=== PATIENT | female | born 1985 | race Caucasian/White ===

== ENCOUNTER 2017-01-02 04:03 | Inpatient (IN) | payer SELFPAY ==
[~2017-01-02] VITALS: Ht 175.3 cm; Wt 89.7 kg
[2017-01-02] VITALS (10 sets, daily range): BP systolic 105–131; BP diastolic 67–78; PULSE 64–97; TEMP 36.4–37.1; O2SAT 92–98; Ht 175.3 cm; Wt 89.7 kg
[~2017-01-02 04:03] MED LIST: IBUP-1050 PO; PRENTAB26 PO; SERT-234 PO
[2017-01-02] MEDS ORDERED: MoRPHine SULFATE 10 MG/ML CARP/VIAL IV STA (04:24)
[2017-01-02] MEDS ORDERED: SODIUM CHLORIDE 0.9% 1000ML 1,000 ML IV STA (04:24)
[2017-01-02] MEDS ORDERED: ONDANSETRON INJ 2 MG/ML 2 ML VIAL IV STA (04:24)
--- NOTE | 2017-01-02 04:32 | EMERGENCY ROOM VISIT NOTE ---
History First contact with patient: 04:14 Chief Complaint: ABDOMINAL PAIN Stated Complaint: SEVERE RT UPPER QUAD PAIN Nursing Triage Summary: pt states she was gassy all day yesterday, then tonight at midnight she woke with severe right upper quad abd pain. pt hyperventilating and instructed to slow breathing down History of Present Illness The patient is a 31 year old female who presents to the Emergency Room with complaints of severe right upper quadrant abdominal pain. The patient reports that throughout the day yesterday, she had gas pains. The patient reports she is lactose intolerant and had ice cream after dinner and assumed this was the cause of her pain. She reports she had profuse with hot sauce and spaghetti for lunch and dinner. She reports that she woke up approximately 4 hours ago with severe pain in the right upper quadrant as well as belching and nausea. She states that she made herself throw up but this did not help the pain. The pain has been gradually worsening and she rates the discomfort a 10/10. She reports a history of prior C-sections, but denies any other prior surgeries. She denies any changes in bowel movements, fevers/chills, urinary symptoms, vaginal discharge, chest pain or shortness of breath. Review of Systems A complete 10 point review of systems was reviewed with the patient with pertinent positives and negatives as per history of present illness. All else were negative. Past Medical/Surgical History Surgical Problems: (1) H/O section Social History Smoking Status: Current Every Day Smoker Marital Status: Housing Status: lives with family Current/Historical Medications No Active Prescriptions or Reported Meds Allergies Coded Allergies: Escitalopram (Verified Allergy, Severe, LETHARGY, 01/02/17) Methylergonovine (Verified Allergy, Severe, HAND CRAMPS,NUMBNESS, 01/02/17 ) Physical Exam Vital Signs Date Time Temp Pulse Resp B/P (MAP) Pulse Ox O2 Delivery O2 Flow Rate FiO2 01/02/17 05:50 61 18 115/65 98 Room Air 01/02/17 04:23 36.7 83 36 113/74 100 Room Air Physical Exam VITALS: Vitals are noted on the nurse's note and reviewed by myself. Vital signs stable. GENERAL: This is a 31-year-old female, hyperventilating, appears to be in pain, well-developed well-nourished. HEART: Regular rate and rhythm without murmurs gallops or rubs. LUNGS: Clear to auscultation bilaterally without wheezes, rales or rhonchi. ABDOMEN: Positive bowel sounds x 4. Soft, nondistended. Tenderness to palpation in the right upper quadrant. No guarding or rebound tenderness. NEURO: Patient was alert and oriented to person place and time. Medical Decision & Procedures ER Provider Diagnostic Interpretation: KUB: No bowel obstruction. BILIARY ULTRASOUND FINDINGS: The pancreas appears sonographically normal. No focal hepatic masses are visualized. There is no ductal dilatation. The gallbladder is distended. Multiple calculi are visualized. A 7 mm calculus is also visualized within the gallbladder neck. There is no right-sided hydronephrosis. There is trace pericholecystic fluid. The gallbladder wall is borderline thickened measuring 3 mm. The common bile duct measures 6 mm. IMPRESSION: 1. Cholelithiasis, gallbladder distention, borderline gallbladder wall thickening, and trace pericholecystic fluid. The findings may indicate acute cholecystitis. Clinical correlation is advocated. Correlation with a nuclear medicine hepatobiliary study could be obtained to assess cystic duct patency. Laboratory Results 01/02/17 04:20 Red Blood Count 5.33, Mean Corpuscular Volume 88.0, Mean Corpuscular Hemoglobin 31.1, Mean Corpuscular Hemoglobin Concent 35.4, Mean Platelet Volume 11.0, Neutrophils (%) (Auto) 62.6, Lymphocytes (%) (Auto) 28.0, Monocytes (%) (Auto) 6.8, Eosinophils (%) (Auto) 2.0, Basophils (%) (Auto) 0.2, Neutrophils # (Auto) 5.02, Lymphocytes # (Auto) 2.25, Monocytes # (Auto) 0.55, Eosinophils # (Auto) 0.16, Basophils # (Auto) 0.02 01/02/17 04:20 Test 01/02/17 00:00 01/02/17 04:20 Urine Color YELLOW Urine Appearance CLEAR (CLEAR) Urine pH 5.5 (4.5-7.5) Urine Specific [place] 1.009 (1.000-1.030) Urine Protein NEG (NEG) Urine Glucose (UA) NEG (NEG) Urine Ketones TRACE (NEG) Urine Occult Blood NEG (NEG) Urine Nitrite NEG (NEG) Urine Bilirubin NEG (NEG) Urine Urobilinogen NEG (NEG) Urine Leukocyte Esterase NEG (NEG) Urine Test NEG (NEG) White Blood Count 8.03 K/uL (4.8-10.8) Red Blood Count 5.33 M/uL (4.2-5.4) Hemoglobin 16.6 g/dL (12.0-16.0) Hematocrit 46.9 % (37-47) Mean Corpuscular Volume 88.0 fL (80-100) Mean Corpuscular Hemoglobin 31.1 pg (25-34) Mean Corpuscular Hemoglobin Concent 35.4 g/dl (32-36) Platelet Count 244 K/uL (130-400) Mean Platelet Volume 11.0 fL (7.4-10.4) Neutrophils (%) (Auto) 62.6 % Lymphocytes (%) (Auto) 28.0 % Monocytes (%) (Auto) 6.8 % Eosinophils (%) (Auto) 2.0 % Basophils (%) (Auto) 0.2 % Neutrophils # (Auto) 5.02 K/uL (1.4-6.5) Lymphocytes # (Auto) 2.25 K/uL (1.2-3.4) Monocytes # (Auto) 0.55 K/uL (0.11-0.59) Eosinophils # (Auto) 0.16 K/uL (0-0.5) Basophils # (Auto) 0.02 K/uL (0-0.2) RDW Standard Deviation 39.9 fL (36.4-46.3) RDW Coefficient of Variation 12.6 % (11.5-14.5) Immature Granulocyte % (Auto) 0.4 % Immature Granulocyte # (Auto) 0.03 K/uL (0.00-0.02) Anion Gap 16.0 mmol/L (3-11) Estimated GFR () 84.9 Estimated GFR (Non- 73.2 BUN/Creatinine Ratio 8.6 (10-20) Calcium Level 9.6 mg/dl (8.5-10.1) Total Bilirubin 0.8 mg/dl (0.2-1) Aspartate Amino Transf (AST/SGOT) 12 U/L (15-37) Alanine Aminotransferase (ALT/SGPT) 17 U/L (12-78) Alkaline Phosphatase 104 U/L (45-117) Total Protein 7.6 gm/dl (6.4-8.2) Albumin 4.3 gm/dl (3.4-5.0) Globulin 3.3 gm/dl (2.5-4.0) Albumin/Globulin Ratio 1.3 (0.9-2) Lipase 121 U/L (73-393) Medications Administered Medications (Trade) Dose Ordered Sig/Yann Route Start Time Stop Time Status Last Admin Dose Admin Sodium Chloride 1,000 ml @ 999 mls/hr Q1H1M STAT IV 01/02/17 04:24 01/02/17 05:24 DC 01/02/17 04:36 999 MLS/HR Morphine Sulfate (MoRPHine SULFATE INJ) 8 mg NOW STAT IV 01/02/17 04:24 01/02/17 04:26 DC 01/02/17 04:36 8 MG Ondansetron HCl (Zofran Inj) 4 mg NOW STAT IV 01/02/17 04:24 01/02/17 04:26 DC 01/02/17 04:36 4 MG Hydromorphone HCl (Dilaudid Inj) 1 mg NOW STAT IV 01/02/17 05:40 01/02/17 05:41 DC 01/02/17 05:48 1 MG ED Course The patient was evaluated as above. Labs were drawn and IV access was obtained. Patient was medicated with 8 mg morphine, 4 mg Zofran and 1 L normal saline solution. Right upper quadrant ultrasound was performed and read by radiology as above. Patient was reevaluated and was having more pain. 1 mg Dilaudid was ordered. Findings were discussed with the patient at this time. Case was discussed with Dr. Araujo of general surgery. He will evaluate the patient for further treatment. Medical Decision Differential diagnosis includes cholecystitis, choledocholithiasis, ascending cholangitis, pancreatitis, bowel obstruction, among others. The patient is a 31-year-old female who presents today complaining of with upper quadrant abdominal pain and vomiting. Labs revealed no leukocytosis, anemia or concerning electrolyte abnormalities. LFTs are within normal limits. Right upper quadrant ultrasound was performed and does show findings concerning for acute cholecystitis. General surgery was consulted and will evaluate the patient for further treatment. The patient's case was reviewed with Dr. Cannon, ED attending physician, who agreed with my assessment and treatment plan. Blood pressure screening: Patient was found to have normal blood pressure on screening and does not require follow-up. Medication reconciliation: I attest that I have personally reviewed the patient 's current medication list. Impression Primary Impression: Acute cholecystitis Departure Information Prescriptions No Active Prescriptions or Reported Meds Referrals No Doctor, Assigned (PCP) Patient Instructions My [facility]
[2017-01-02 04:37] LABS: BASO % 0.2 %; BASO ABS # 0.02 K/uL (0-0.2); COMPLETE YES; HEMATOCRIT 46.9 % (37-47); IG% 0.4 %; LYMPH ABS # 2.25 K/uL (1.2-3.4); MEAN CORPUSCULAR HEMOGLOBIN 31.1 pg (25-34); MEAN CORPUSCULAR HGB CONC 35.4 g/dl (32-36); MONO % 6.8 %; NEUT % 62.6 %; PLATELET COUNT 244 K/uL (130-400); RED BLOOD COUNT 5.33 M/uL (4.2-5.4); WHITE BLOOD COUNT 8.03 K/uL (4.8-10.8)
[2017-01-02 04:58] LABS: ALT/SGPT 17 U/L (12-78); AST/SGOT 12 U/L (15-37); BLOOD UREA NITROGEN 9 mg/dl (7-18); BUN/CREATININE RATIO 8.6 (10-20); CALCIUM 9.6 mg/dl (8.5-10.1); CARBON DIOXIDE 18 mmol/L (21-32); CHLORIDE 107 mmol/L (98-107); CREATININE 1.02 mg/dl (0.60-1.20); GLUCOSE 114 mg/dl (70-99); POTASSIUM 3.6 mmol/L (3.5-5.1); SODIUM 141 mmol/L (136-145)
[2017-01-02 05:01] LABS: ALB/GLOB RATIO 1.3 (0.9-2); ALKALINE PHOSPHATASE 104 U/L (45-117)
[2017-01-02 05:18] LABS: URINE APPEARANCE CLEAR (CLEAR); URINE BILIRUBIN NEG (NEG); URINE COLOR YELLOW; URINE NITRITE NEG (NEG); URINE PH 5.5 (4.5-7.5); URINE SPECIFIC GRAVITY 1.009 (1.000-1.030); UROBILINOGEN NEG (NEG); ZZUR CULT IF INDIC CLEAN CATCH NO
[2017-01-02 05:19] LABS: MANUAL MICROSCOPIC REQUIRED? NO; REVIEW REQ? NO
[2017-01-02] MEDS ORDERED: HYDROmorphone INJ 1 MG/ML SYR IV STA (05:40)
--- NOTE | 2017-01-02 06:42 | DIAGNOSTIC IMAGING REPORT ---
BILIARY ULTRASOUND CLINICAL HISTORY: Right upper quadrant abdominal pain and vomiting COMPARISON STUDY: No previous studies for comparison. FINDINGS: The pancreas appears sonographically normal. No focal hepatic masses are visualized. There is no ductal dilatation. The gallbladder is distended. Multiple calculi are visualized. A 7 mm calculus is also visualized within the gallbladder neck. There is no right-sided hydronephrosis. There is trace pericholecystic fluid. The gallbladder wall is borderline thickened measuring 3 mm. The common bile duct measures 6 mm. IMPRESSION: 1. Cholelithiasis, gallbladder distention, borderline gallbladder wall thickening, and trace pericholecystic fluid. The findings may indicate acute cholecystitis. Clinical correlation is advocated. Correlation with a nuclear medicine hepatobiliary study could be obtained to assess cystic duct patency. Electronically signed by: Shay Duarte M.D. 01/02/2017 6:41 AM Dictated Date/Time: 01/02/2017 6:39 AM
--- NOTE | 2017-01-02 06:58 | History and Physical ---
History & Physical Date Jan 02, 2017. Chief Complaint abdominal pain History of Present Illness The patient is a 31 year old female with complaints of abd pain w/ radiation to the back +N/V- persistent over 24 hrs ER w/u u/s shows- dilated gb w/ stones, thickened- c/w acute cholecystitis Past Medical/Surgical History Surgical Problems: (1) H/O section Additional History Hepatic Disease: No Endocrine Disorder: No Kidney Disease: No Hypertension: No Heart Disease: No Allergies Coded Allergies: Escitalopram (Verified Allergy, Severe, LETHARGY, 01/02/17) Methylergonovine (Verified Allergy, Severe, HAND CRAMPS,NUMBNESS, 01/02/17 ) Home Medications No Active Prescriptions or Reported Meds Physical Examination Skin: warm/dry Eyes: sclerae normal Neck: supple Respiratory/Chest: no respiratory distress Cardiovascular: regular rate, rhythm Abdomen / GI: + pertinent finding (RUQ pain) Neurologic/Psych: alert Diagnosis acute cholecystitis Plan of Treatment for laparoscopic cholecystectomy, possible open operation possible cholangiogram. admit
[2017-01-02] MEDS ORDERED: PROMETHAZINE HCL INJ 25 MG in SODIUM CHLORIDE 0.9% 50ML 50 ML IV PRN (07:00)
--- NOTE | 2017-01-02 07:10 | DIAGNOSTIC IMAGING REPORT ---
KUB CLINICAL HISTORY: Right upper quadrant abdominal pain and vomiting COMPARISON STUDY: No previous studies for comparison. FINDINGS: There are no transition zones indicate bowel obstruction. There is mild fecal retention. There are no calcifications suspicious for urinary tract calculi. IMPRESSION: 1. No evidence of bowel obstruction 2. Mild fecal retention Electronically signed by: Shay Duarte M.D. 01/02/2017 7:09 AM Dictated Date/Time: 01/02/2017 7:09 AM
[2017-01-02] MEDS: HYDROmorphone INJ 1 MG/ML SYR IV PRN ×2 (08:24→10:36)
--- NOTE | 2017-01-02 08:49 | History & Physical Bridge Note ---
H&P Re-Evaluation Bridge Note: I have examined the patient, reviewed the History & Physical and in the interval since the performance of the History & Physical I have noted the following changes of clinical significance: No changes noted pt examined will proceed with lap shirley possible open poss cholangiogram for today r and c explained to pt
[2017-01-02] MEDS: LACTATED RINGER'S 1000ML 1,000 ML IV SCH ×2 (09:58→17:10)
[2017-01-02] MEDS: NICOTINE 14 MG/24 HR TDSY TD SCH (10:04)
[2017-01-02] MEDS ORDERED: NURSING VERBAL MED ORDER ONE (10:30)
[2017-01-02] MEDS: ONDANSETRON INJ 2 MG/ML 2 ML VIAL IV PRN ×2 (10:40→15:19)
[2017-01-02] MEDS ORDERED: HYDROmorphone INJ 1 MG/ML SYR IV PRN (11:15)
[2017-01-02] MEDS ORDERED: DEXAMETHASONE SOD INJ 4 MG/ML VIAL ONE (11:34)
[2017-01-02] MEDS ORDERED: FENTANYL CITRATE INJ 50 MCG/1 ML 2 ML VIAL ONE ×4 (11:34→13:32)
[2017-01-02] MEDS ORDERED: ONDANSETRON INJ 2 MG/ML 2 ML VIAL ONE (11:34)
[2017-01-02] MEDS ORDERED: MIDAZOLAM HCL 1 MG/ML 2ML VIAL ONE (11:34)
[2017-01-02] MEDS ORDERED: PROPOFOL IV EMULSION 10 MG/ML 20 ML VIAL IV ONE (11:34)
[2017-01-02] MEDS ORDERED: LIDOCAINE HCL 2% 2 ML VIAL (20MG/ML) ONE (11:34)
[2017-01-02] MEDS ORDERED: PHENYLEPHRINE 100MCG/ML 5ML SYR IV PRN (12:00)
[2017-01-02] MEDS ORDERED: LIDOCAINE/EPINEPHRINE 1% 20 ML VIAL ONE (12:00)
[2017-01-02] MEDS ORDERED: EpHEDrine SULFATE INJ 50 MG/ML AMP IV PRN (12:00)
[2017-01-02] MEDS ORDERED: CONRAY 60% 50 ML VIAL ONE (12:00)
[2017-01-02] MEDS ORDERED: HYDROmorphone INJ 2 MG/ML SYR/VIAL IV PRN (12:00)
[2017-01-02] MEDS ORDERED: ATROPINE SULFATE 0.1 MG/ML 5ML SYR IV PRN (12:00)
[2017-01-02] MEDS ORDERED: ONDANSETRON INJ 2 MG/ML 2 ML VIAL IV PRN (12:00)
--- NOTE | 2017-01-02 13:16 | DIAGNOSTIC IMAGING REPORT ---
CHOLANGIOGRAM O.R. CLINICAL HISTORY: CHOLANGIOGRAM COMPARISON STUDY: None FLUOROSCOPY TIME: 3 seconds. NUMBER OF FLUOROSCOPIC IMAGES: 1 FINDINGS: The cystic duct was cannulated and contrast was instilled into the common bile duct. There was free flow into duodenum. There were no filling defects to indicate retained calculi. There is minimal irregularity the proximal pancreatic duct. IMPRESSION: 1. No retained calculi identified 2. Minimal irregularity of the pancreatic duct, a finding of questionable clinical significance Electronically signed by: Shay Duarte M.D. 01/02/2017 1:15 PM Dictated Date/Time: 01/02/2017 1:13 PM
--- NOTE | 2017-01-02 13:47 | [facility] Operative Report ---
Operative Report Operative Date Jan 02, 2017. Pre-Operative Diagnosis Acute cholecystitis cholelithiasis Post-Operative Diagnosis Acute cholecystitis cholelithiasis Procedure(s) Performed Laparoscopic Cholecystectomy with Intraoperative cholangiogram Surgeon Dr. Ermias Nance Medication Technician Surgeon(s) None Estimated Blood Loss 15.5 mL Findings acute edematous cholecystitis Specimens Permanent specimens A: Gallbladder and contents Drains # [id number] young per drain Description of Procedure confirmation number for OR dictation [id number] I attest to the content of the Intraoperative Record and any orders documented therein. Any exceptions are noted below.
[2017-01-02] MEDS: HYDROmorphone INJ 0.5 MG/0.5 ML SYR IV PRN ×2 (13:50→23:54)
--- NOTE | 2017-01-02 14:14 | Anesthesiology Progress Note ---
Anesthesia Post Op Note Date & Time Jan 02, 2017 at 14:14 Vital Signs Pain Intensity: 3 Vital Signs Past 12 Hours Date Time Temp Pulse Resp B/P (MAP) Pulse Ox O2 Delivery O2 Flow Rate FiO2 01/02/17 14:05 87 16 140/77 99 Nasal Cannula 4 01/02/17 13:55 110 16 128/79 99 Nasal Cannula 4 01/02/17 13:45 115 16 122/88 99 Nasal Cannula 4 01/02/17 13:37 36.5 106 16 117/80 97 Nasal Cannula 4 01/02/17 08:45 36.7 64 16 122/77 (92) 96 Room Air 01/02/17 08:45 Room Air 01/02/17 08:33 60 16 110/70 99 01/02/17 08:28 60 16 124/67 99 Room Air 01/02/17 07:30 90 18 121/72 99 Room Air 01/02/17 07:20 98 Room Air 01/02/17 05:50 61 18 115/65 98 Room Air 01/02/17 04:23 36.7 83 36 113/74 100 Room Air Notes Mental Status: alert / awake / arousable, participated in evaluation Pt Amnestic to Procedure: Yes Nausea / Vomiting: adequately controlled Pain: adequately controlled Airway Patency, RR, SpO2: stable & adequate BP & HR: stable & adequate Hydration State: stable & adequate Anesthetic Complications: no major complications apparent
[2017-01-02] MEDS: CEFOXITIN IV 1,000 MG in DEXTROSE 5% 50ML 50 ML IV SCH ×2 (15:19→22:03)
--- NOTE | 2017-01-02 15:56 | OPERATIVE REPORT ---
DATE OF OPERATION: 01/02/2017 SURGEON: Dr. Nance. PREOPERATIVE DIAGNOSES: Chronic cholecystitis, cholelithiasis. POSTOPERATIVE DIAGNOSES: Same. PROCEDURE: Laparoscopic cholecystectomy, intraoperative cholangiogram. SUMMARY: After induction of general anesthesia, the patient's abdomen was prepped with Betadine scrubbing solution and properly draped. I made a small incision supraumbilically enough to place a Veress needle followed by CO2 followed by 5 mm trocar. Under direct visualization, we placed a 5 mm epigastric, two 5 mm subcostal ports with preemptive local analgesia 1% Xylocaine. The gallbladder was acutely inflamed, it was tense and therefore, we used an aspirating needle and aspirated what appeared to be bilious color, it was not clear. At this point, we placed it under traction and then dissected out acutely inflamed gallbladder and the jason hepatis that mostly was done by blunt dissection. With some sharp dissection, we identified a few strands that appeared to be lymphatic chains going into that towards the triangle of [place]. We identified the lymph node and avoided it, identified the artery, doubly clipped proximally and distally and divided. There is a posterior branch was similarly divided. We then encircled the cystic duct at the takeoff from the gallbladder with a right angle clamp, we clipped it proximally. A small opening in the cystic duct was made. A #4 urethral catheter transversing abdominal wall positioned in the cystic duct. Serial x-rays showed free flow into the duodenum. No obstruction. The cholangiocath was then removed. The cystic duct was doubly clipped and divided. Then, we used a plane dissection on to the acute edematous wall, but there was moderate amount of oozing throughout the procedure with associated edema. When we made the skin incision, the patient had some bleeding. Once free it up completely from the gallbladder, it was placed in an Endopouch and took it out intact through the epigastric port. The patient had multiple stones. These were bilirubinate stones, some of them up to about 1 cm in size. This was completely removed. Then subhepatic and suprahepatic area was suctioned out. There was still some oozing from the gallbladder fossa. Therefore, we controlled with electrocautery, but I elected to drain the area with a Vikas drain, which we brought out in the epigastric area and taken out laterally through one of the stab wounds and attached to skin edges with 2-0 silk, we placed subhepatically. Prior to removing the trocar, we placed a camera in subcostal port and visualized the umbilical opening and there were no adhesions in the umbilical area. Individual trocars removed and last umbilical trocar. We closed the fascial with stitch 0 Vicryl for the epigastric area, the other one is 4-0 Vicryl subQ. Steri-Strips applied. The procedure was tolerated well by the patient and was taken to recovery room in good condition. I attest to the content of the Intraoperative Record and any orders documented therein. Any exception s are noted below.
[2017-01-02] MEDS: OXYCODONE/ACETAMINOPHEN 5-325 TAB PO PRN ×2 (17:07→22:03)
[2017-01-03] MEDS: LACTATED RINGER'S 1000ML 1,000 ML IV SCH (02:38)
[2017-01-03] MEDS: OXYCODONE/ACETAMINOPHEN 5-325 TAB PO PRN ×3 (02:42→11:03)
[2017-01-03 03:28] VITALS: BP 98/65; PULSE 60; TEMP 36.7; O2SAT 95
[2017-01-03] MEDS: CEFOXITIN IV 1,000 MG in DEXTROSE 5% 50ML 50 ML IV SCH (05:23)
[2017-01-03 06:23] LABS: BASO % 0.1 %; BASO ABS # 0.01 K/uL (0-0.2); COMPLETE YES; EOS % 0.2 %; HEMATOCRIT 46.2 % (37-47); IG% 0.2 %; LYMPH % 14.5 %; LYMPH ABS # 1.52 K/uL (1.2-3.4); MEAN CELL VOLUME 91.1 fL (80-100); MEAN CORPUSCULAR HEMOGLOBIN 30.4 pg (25-34); MEAN CORPUSCULAR HGB CONC 33.3 g/dl (32-36); MONO % 5.7 %; NEUT % 79.3 %; PLATELET COUNT 228 K/uL (130-400); RED BLOOD COUNT 5.07 M/uL (4.2-5.4); WHITE BLOOD COUNT 10.49 K/uL (4.8-10.8)
[2017-01-03 07:01] LABS: BUN/CREATININE RATIO 4.9 (10-20); CALCIUM 8.7 mg/dl (8.5-10.1); CREATININE 1.08 mg/dl (0.60-1.20)
[2017-01-03 07:08] VITALS: BP 106/62; PULSE 65; TEMP 36.8; O2SAT 95
[2017-01-03] MEDS ORDERED: KETOROLAC TROMETHAMINE 30 MG/ML VIAL IV ONE (07:39)
--- NOTE | 2017-01-03 07:42 | Surgery Progress Note ---
Surgery Progress Note Date of Service Jan 03, 2017. Subjective Post OP Day: 1 + pain controlled (marginal), + nausea (last night), + diet (clears, full liquid ordered for breakfast) Objective Vital Signs: Date Time Temp Pulse Resp B/P (MAP) Pulse Ox O2 Delivery O2 Flow Rate FiO2 01/03/17 07:08 36.8 65 17 106/62 (77) 95 Room Air 01/03/17 03:28 36.7 60 14 98/65 (76) 95 Room Air 01/02/17 23:57 Room Air 01/02/17 22:45 36.7 67 14 106/70 (82) 94 Room Air 01/02/17 19:56 36.7 75 17 106/67 (80) 95 Room Air 01/02/17 17:30 37.1 75 18 116/78 (91) 95 Room Air 01/02/17 16:30 36.7 74 17 105/70 (82) 95 Room Air 01/02/17 15:45 Room Air 01/02/17 15:30 36.7 76 16 108/69 (82) 95 Room Air 01/02/17 15:00 36.4 91 17 131/72 (91) 92 Room Air 01/02/17 14:34 97 Room Air 01/02/17 14:30 36.6 97 16 124/76 (92) 97 Room Air 01/02/17 14:15 36.4 74 16 118/64 99 Nasal Cannula 4 01/02/17 14:05 87 16 140/77 99 Nasal Cannula 4 01/02/17 13:55 110 16 128/79 99 Nasal Cannula 4 01/02/17 13:45 115 16 122/88 99 Nasal Cannula 4 01/02/17 13:37 36.5 106 16 117/80 97 Nasal Cannula 4 01/02/17 08:45 36.7 64 16 122/77 (92) 96 Room Air 01/02/17 08:45 Room Air 01/02/17 08:33 60 16 110/70 99 01/02/17 08:28 60 16 124/67 99 Room Air Physical Exam: Vikas drainage (20 cc) Abdomen: non distended, soft Incision(s): dry, drainage (around drain) Laboratory Results: Results Past 24 Hours Test 01/03/17 06:11 Range/Units White Blood Count 10.49 4.8-10.8 K/uL Red Blood Count 5.07 4.2-5.4 M/uL Hemoglobin 15.4 12.0-16.0 g/dL Hematocrit 46.2 37-47 % Mean Corpuscular Volume 91.1 80-100 fL Mean Corpuscular Hemoglobin 30.4 25-34 pg Mean Corpuscular Hemoglobin Concent 33.3 32-36 g/dl Platelet Count 228 130-400 K/uL Mean Platelet Volume 11.0 7.4-10.4 fL Neutrophils (%) (Auto) 79.3 % Lymphocytes (%) (Auto) 14.5 % Monocytes (%) (Auto) 5.7 % Eosinophils (%) (Auto) 0.2 % Basophils (%) (Auto) 0.1 % Neutrophils # (Auto) 8.32 1.4-6.5 K/uL Lymphocytes # (Auto) 1.52 1.2-3.4 K/uL Monocytes # (Auto) 0.60 0.11-0.59 K/uL Eosinophils # (Auto) 0.02 0-0.5 K/uL Basophils # (Auto) 0.01 0-0.2 K/uL RDW Standard Deviation 42.0 36.4-46.3 fL RDW Coefficient of Variation 12.7 11.5-14.5 % Immature Granulocyte % (Auto) 0.2 % Immature Granulocyte # (Auto) 0.02 0.00-0.02 K/uL Sodium Level 141 136-145 mmol/L Potassium Level 4.0 3.5-5.1 mmol/L Chloride Level 109 98-107 mmol/L Carbon Dioxide Level 23 21-32 mmol/L Anion Gap 9.0 3-11 mmol/L Blood Urea Nitrogen 5 7-18 mg/dl Creatinine 1.08 0.60-1.20 mg/dl Est Creatinine Clear Calc Drug Dose 90.1 ml/min Estimated GFR () 79.2 Estimated GFR (Non- 68.3 BUN/Creatinine Ratio 4.9 10-20 Random Glucose 100 70-99 mg/dl Calcium Level 8.7 8.5-10.1 mg/dl Assessment & Plan s/p lap shirley add Toradol increase diet, activity recheck later today
[2017-01-03] MEDS ORDERED: OXYC-57 PO (07:43)
[2017-01-03] MEDS ORDERED: KETOROLAC TROMETHAMINE 30 MG/ML VIAL IV PRN (07:45)
--- NOTE | 2017-01-03 08:30 | Discharge Instructions ---
Discharge Instructions Date of Service Jan 03, 2017. Admission Reason for Admission: Acute Cholecystitis Discharge Discharge Diagnosis / Problem: laparoscopic cholecystectomy Discharge Goals Goal(s): Decrease discomfort Activity Recommendations Activity Limitations: as noted below Lifting Limitations: no more than 25 pounds Shower/Bathe: no limitations Driving or Machine Use: resume 3 days after discharge . Instructions / Follow-Up Instructions / Follow-Up Dr. Nance in 1 week, call [phone] to schedule, [address] Alves may take ibuprofen 600 mg every 6 hours between Percocet doses Current Hospital Diet Patient's current hospital diet: Full Liquid Diet Discharge Diet Recommended Diet: Low Fat Diet (for a few days) Procedures Procedures Performed: Laparoscopic Cholecystectomy with Intraoperative cholangiogram Pending Studies Studies pending at discharge: no Work Instructions Additional Instructions: no work for 1-2 weeks, no lifting more than 25 pounds for 2-4 weeks Medical Emergencies . Who to Call and When: Medical Emergencies: If at any time you feel your situation is an emergency, please call 911 immediately. . Non-Emergent Contact Non-Emergency issues call your: Surgeon Call Non-Emergent contact if: you have a fever, temperature is above 101.5, your pain is not controlled, wound has increased redness, you have any medication questions . "Provider Documentation" section prepared by Sky Gonzalez. . VTE Core Measure Inpt VTE Proph given/why not?: SCD's [place] Drug Monitoring Program Search Results: no issues identified
--- NOTE | 2017-01-03 09:55 | Anesthesiology Progress Note ---
Anesthesia Post Op Note Date & Time Jan 03, 2017 at 09:54 Vital Signs Vital Signs Past 12 Hours Date Time Temp Pulse Resp B/P (MAP) Pulse Ox O2 Delivery O2 Flow Rate FiO2 01/03/17 07:08 36.8 65 17 106/62 (77) 95 Room Air 01/03/17 03:28 36.7 60 14 98/65 (76) 95 Room Air 01/02/17 23:57 Room Air 01/02/17 22:45 36.7 67 14 106/70 (82) 94 Room Air Notes Mental Status: alert / awake / arousable, participated in evaluation Pt Amnestic to Procedure: Yes Nausea / Vomiting: adequately controlled Pain: adequately controlled Airway Patency, RR, SpO2: stable & adequate BP & HR: stable & adequate Hydration State: stable & adequate Anesthetic Complications: no major complications apparent
--- NOTE | 2017-01-03 09:56 | DISCHARGE SUMMARY ---
PRIMARY DISCHARGE DIAGNOSES: Cholelithiasis with acute and chronic cholecystitis. PROCEDURE PERFORMED: Laparoscopic cholecystectomy with intraoperative cholangiogram. HOSPITAL COURSE: The patient is a 31-year-old female who presented to Emergency Department overnight complaining of severe right upper quadrant pain. Her white count was normal, although ultrasound showed cholelithiasis with wall thickening and trace pericholecystic fluid. She was admitted to the surgery service and started on IV antibiotics. She was taken to the operating room that afternoon for laparoscopic cholecystectomy. Cholangiogram was normal. The procedure was well tolerated. She was returned to the surgical floor. She had some nausea overnight but by postoperative day 1 was able to tolerate an advancing diet and oral analgesics. Vikas drainage was 20 mL overnight and this was removed. Her abdomen was soft. She was stable for discharge once she was tolerating regular diet. DISCHARGE INSTRUCTIONS: Discharge home. Follow up with Dr. Nance in 1 week. DISCHARGE MEDICATIONS: Percocet 1-2 tablets every 4 hours, she may take over the counter ibuprofen 600 mg every 6 hours as needed. JALILD
[2017-01-03] MEDS: NICOTINE 14 MG/24 HR TDSY TD SCH (11:02)
[2017-01-03 11:16] VITALS: BP 115/73; PULSE 58; TEMP 36.8; O2SAT 97
[2017-01-03 13:00] VITALS: BP 115/73; PULSE 58; TEMP 36.8; O2SAT 97
== END 2017-01-03 14:41 | disposition home or self-care (01) | DRG 419 ==
LOC: C.EDB 04:05 → C.MSW 06:52 → ENRESERV 07:22
PROVIDERS: ADMIT Surgery; ATTEND Surgery
PROC: 0FT44ZZ Resection of Gallbladder, Percutaneous Endoscopic Approach (ICD-10-PCS; principal; 2017-01-02 11:30)
PROC: BF14YZZ Fluoroscopy of Gallbladder, Bile Ducts and Pancreatic Ducts using Other Contrast (ICD-10-PCS; principal; 2017-01-02 11:30)
DX: K80.12 Calculus of gallbladder with acute and chronic cholecystitis without obstruction (principal); F17.200 Nicotine dependence, unspecified, uncomplicated

== ENCOUNTER 2017-02-12 11:32 | Emergency (ER) | payer OTHER ==
[~2017-02-12] VITALS: Ht 175.3 cm; Wt 86.7 kg
[~2017-02-12 11:32] MED LIST changes: -IBUP-1050 PO; +OXYC-57 PO; -PRENTAB26 PO; -SERT-234 PO
[2017-02-12 11:38] VITALS: TEMP 36.6; Ht 175.3 cm; Wt 86.7 kg
[2017-02-12] MEDS ORDERED: MULT-506 PO (11:43)
[2017-02-12] MEDS ORDERED: BUPR150T47 PO (11:43)
[2017-02-12] MEDS ORDERED: XYLOCAINE 1%/SOD BICARB 20 ML VIAL INFIL ONE (13:00)
[2017-02-12] MEDS ORDERED: DIPHTHERIA/TETANUS/PERTUSSIS 0.5 ML SYR/VIAL IM. ONE (13:00)
[2017-02-12 13:26] VITALS: BP 134/63; PULSE 71; O2SAT 100
--- NOTE | 2017-02-12 17:40 | EMERGENCY ROOM VISIT NOTE ---
ED Visit Note First contact with patient: 12:44 Chief Complaint: I cut my right hand. History of Present Illness: Ms. Kent is a 32-year-old white female who ambulates into the ED complaining of a right hand laceration over the lateral aspect of the thenar eminence. Patient reports approximately one hour ago she was attempting to open a door and reports that her right hand went through the door of the window and she sustained a laceration. She does reports she control bleeding prior to arrival at the hospital but did not wash the wound. Associated with her injury she reports she has a stinging and throbbing pain in the right hand. She rates her discomfort 5/10. The pain is nonradiating. The pain worsens with palpation and laceration. She is not identified any alleviating factors related to the pain. She has not taken any medications for pain prior to arrival at the hospital. Associated with her pain she reports she is having some numbness and paresthesias in the right little finger. She denies elbow pain, forearm pain, wrist pain, other hand pain, other finger weakness/numbness/tingling. Review of Systems: As noted above in history of present illness. Past Medical History: Pneumonia, recurrent UTI, anxiety, depression and status post cholecystectomy and sections. Current Medications: Zyban, multivitamins. Allergies to Medications: Escitalopram, methylergonovine. Social History: Patient is not employed; she feels safe in her home environment ; she admits to tobacco and alcohol use. Tetanus Immunization Status: Patient was unsure. Physical Examination: Vital Signs: Date Time Temp Pulse Resp B/P (MAP) Pulse Ox O2 Delivery O2 Flow Rate FiO2 02/12/17 13:26 71 18 134/63 100 Room Air 02/12/17 11:38 36.6 79 18 106/74 98 Room Air GENERAL: 32-year-old female in mild distress due to pain, nontoxic-appearing, afebrile and hemodynamically stable. NEUROLOGICAL: Awake, alert and oriented to person, place and time. Answering questions appropriately and following commands. SKIN: Warm, dry and pink. Right Hand: Over the lateral aspect of the thenar eminence patient has a 2.6 cm full-thickness laceration. Minimal bleeding. RIGHT HAND: Soft tissue injury as noted above. No gross bony deformity. Mild tenderness over lacerations but no tenderness over the wrist, fifth metacarpal, fifth MCP joint or little finger. Full range of motion in flexion and extension and radial and ulnar deviation of the wrist, flexion and extension of the MCP and PIP joints. Throughout the finger the skin was warm and pink and capillary refill is brisk. She was able to distinguish light sensations through all dermatomes of the finger. ED Course: Patient is assessed as noted above. Wound Repair: Complexity: Basic Verbal consent was obtained after the risks and benefits were explained. The skin was prepped with betadine and a sterile field set. Wound edges of the wound was anesthetized with 4.1 ml buffered 1% lidocaine. The wound was explored for foreign bodies and none found. Copious irrigation was performed using sterile saline. With direct pressure the bleeding subsided. Debridement was not performed. The wound edges were approximated using 5-0 Ethilon with 8 simple interrupted sutures. Hemostasis and excellent approximation was achieved. Antibacterial ointment and a sterile dressing applied. No complications and the patient tolerated the procedure well. Patient was given an Adacel booster IM. Patient was educated about tonight's findings and instructed on his treatment plan; he verbalizes understanding and agreement with this plan. Clinical Impression: Laceration of the right hand. Disposition: Patient discharged home in stable condition; prior to departure he was reassessed and subjectively reported and subjectively reported she was feeling better. Plan: Comfort measures, wound care, and signs of infection were discussed with the patient. Patient was encouraged to follow-up with personal physician or return emergency department for signs of infection and/or suture removal in 10 to 12 days.
== END 2017-02-12 13:37 | disposition home or self-care (01) ==
LOC: C.EDB 11:33 → C.EDD 13:37
DX: S61.411A Laceration without foreign body of right hand, initial encounter (principal); W25.XXXA Contact with sharp glass, initial encounter; Y93.89 Activity, other specified; Y99.8 Other external cause status; F32.9 Major depressive disorder, single episode, unspecified; Z87.01 Personal history of pneumonia (recurrent); Z87.440 Personal history of urinary (tract) infections; Z72.0 Tobacco use; Z90.49 Acquired absence of other specified parts of digestive tract; Z98.891 History of uterine scar from previous surgery; Z79.899 Other long term (current) drug therapy; Z23 Encounter for immunization